=== PATIENT | male | born 1940 | race Caucasian/White ===

== ENCOUNTER 2016-07-28 05:30 | Inpatient (IN) | payer OTHER ==
[~2016-07-28] VITALS: Ht 185.4 cm; Wt 111.1 kg
[~2016-07-28 05:30] MED LIST: ASPI-1063 PO; ATEN-166 PO; CLOP75TA2 PO; HYDR12.585 PO; IBUP-1480 PO; LISI-600 PO; PRAV40TA PO
[2016-07-28] MEDS ORDERED: CEFAZOLIN 1 GM IVPB PREMIX 50 ML IV ONE (07:00)
[2016-07-28] MEDS ORDERED: POLYMYXIN 500,000/BACIT.10,000 UNITS in NS IRR 1 L IR ONE (07:06)
[2016-07-28] MEDS ORDERED: LR 1,000 ML IV SCH (08:20)
[2016-07-28] MEDS ORDERED: NALBUPHINE HCL 10 MG/ML AMP IVP PRN (08:30)
[2016-07-28] MEDS ORDERED: ePHEDrine sulfate 50 MG/ML VIAL IVP PRN (08:30)
[2016-07-28] MEDS ORDERED: fentaNYL CITRATE/PF 100 MCG/2 ML AMP IVP PRN (08:30)
[2016-07-28] MEDS ORDERED: DIPHENHYDRAMINE INJ 50 MG/ML VIAL IVP PRN (08:30)
[2016-07-28] MEDS ORDERED: ONDANSETRON HCL 4 MG/2 ML VIAL IVP PRN ×2 (08:30)
[2016-07-28] MEDS ORDERED: NALOXONE HCL 0.4 MG/ML AMP (NARCAN) IVP PRN (08:30)
[2016-07-28] MEDS ORDERED: KETOROLAC TROMETHAMINE 30 MG VIAL IM PRN (08:30)
[2016-07-28] MEDS ORDERED: D5/0.45 NS 1,000 ML IV ONE (09:12)
[2016-07-28] MEDS ORDERED: BISACODYL 10 MG/SUPPOSITORY RC PRN (09:15)
[2016-07-28 10:24] VITALS: BP 126/64; PULSE 56; RESP 19; O2SAT 96
[2016-07-28] MEDS ORDERED: VANCOMYCIN HCL 1000 MG/VIAL IV ONE (14:00)
[2016-07-28] MEDS ORDERED: MIDAZOLAM HCL 5 MG/5 ML VIAL ONE (14:00)
[2016-07-28] MEDS ORDERED: MORPHINE SULFATE 10MG/10ML PF AMP ONE (14:00)
[2016-07-28] MEDS ORDERED: PROPOFOL 200MG/ 20ML VIAL (DIPRIVAN) IV ONE (14:00)
[2016-07-28] MEDS ORDERED: METOCLOPRAMIDE HCL 10 MG/2 ML VIAL ONE (14:00)
[2016-07-28] MEDS ORDERED: SEVOFLURANE 15 MIN GAS INH ONE (14:00)
[2016-07-28] MEDS ORDERED: fentaNYL CITRATE/PF 100 MCG/2 ML AMP ONE (14:00)
[2016-07-28] MEDS ORDERED: ceFAZolin SODIUM 1 GM VIAL ONE (14:00)
[2016-07-28] MEDS ORDERED: NORMAL SALINE 10 ML VIAL ONE (14:00)
[2016-07-28] MEDS ORDERED: NS 100 ML BAG IV ONE (14:00)
[2016-07-28] MEDS ORDERED: LR 1,000 ML IV.SOLN IV ONE (14:00)
[2016-07-28] MEDS: CEFAZOLIN 1 GM IVPB PREMIX 50 ML IV SCH ×2 (16:57→21:14)
[2016-07-28] MEDS: ACETAMINOPHEN 325 MG TABLET PO PRN (17:06)
[2016-07-28 20:10] VITALS: BP 109/52; PULSE 89; RESP 18; TEMP 97.2; O2SAT 94
[2016-07-28] MEDS: ATENOLOL 25 MG TABLET(TENORMIN) PO SCH (21:00)
[2016-07-28] MEDS: SIMVASTATIN 40 MG TABLET PO SCH (21:11)
[2016-07-28] MEDS: HYDROcodone/ACETAMIN 7.5-325 MG TAB PO PRN (21:16)
[2016-07-28] MEDS: MORPHINE SULFATE 10 MG/ML VIAL IM PRN (22:34)
[2016-07-28] MEDS ORDERED: HYDROmorphone 1 MG INJ. 1 MG/ML AMPUL IVP ONE (23:30)
[2016-07-29] VITALS (8 sets, daily range): BP systolic 106–147; BP diastolic 53–71; PULSE 76–92; RESP 16–19; TEMP 98.2–101.1; O2SAT 91–98
[2016-07-29 06:46] LABS: BASOPHILS % (AUTO) 0.6 % (0.0-2.0); EOSINOPHILS # (AUTO) 0.1 K/uL (0.0-0.4); EOSINOPHILS % (AUTO) 0.8 % (0.0-4.0); HEMATOCRIT 35.9 % (36-54); HEMOGLOBIN 12.2 g/dL (14.0-18.0); LYMPHOCYTES # (AUTO) 1.4 K/uL (1.0-5.5); LYMPHOCYTES % (AUTO) 19.1 % (20.5-51.5); MEAN CORPUSCULAR HEMOGLOBIN 33 pg (27-31); MEAN CORPUSCULAR HGB CONC 34 % (32-36); MEAN CORPUSCULAR VOLUME 98 fL (79.0-98.0); MONOCYTES # (AUTO) 1.3 K/uL (0.0-1.0); NEUTROPHILS # (AUTO) 4.6 K/uL (1.8-7.7); NEUTROPHILS % (AUTO) 61.5 % (40.0-70.0); PLATELET COUNT (AUTO) 115 K/uL (130-430); RED BLOOD CELL COUNT(AUTO) 3.68 MIL/uL (4.2-6.2); RED CELL DISTRIBUTION WIDTH 12.3 % (9.0-15.0); WHITE BLOOD COUNT (AUTO) 7.4 K/uL (4.8-10.8)
[2016-07-29 07:07] LABS: INR 1.1 (0.80-1.20); PROTHROMBIN TIME 11.5 SECS (9.5-12.5)
[2016-07-29] MEDS: HYDROCHLOROTHIAZIDE 12.5 MG CAPSULE (HCTZ) PO SCH (08:41)
[2016-07-29] MEDS: LISINOPRIL 20 MG TABLET PO SCH (08:41)
[2016-07-29] MEDS: RIVAROXABAN 10 MG TABLET PO SCH (08:41)
[2016-07-29] MEDS: ATENOLOL 25 MG TABLET(TENORMIN) PO SCH ×2 (08:41→20:48)
[2016-07-29] MEDS: MORPHINE SULFATE 10 MG/ML VIAL IM PRN ×3 (08:42→22:34)
[2016-07-29] MEDS ORDERED: PRAVASTATIN SODIUM 20 MG TABLET (PRAVACHOL) PO SCH (09:00)
[2016-07-29] MEDS: HYDROcodone/ACETAMIN 7.5-325 MG TAB PO PRN ×2 (11:34→20:48)
[2016-07-29 11:41] LABS: ANION GAP 10 (5-15); CALCIUM 8.6 mg/dL (8.4-11.0); CHLORIDE 96 mmol/L (98-107); CREATININE 1.18 mg/dL (0.55-1.30); GLUCOSE 148 mg/dL (70-99); POTASSIUM 3.6 mmol/L (3.5-5.1); SODIUM SERUM 136 mmol/L (136-145); UREA NITROGEN, BLOOD 13 mg/dL (8-21)
[2016-07-29 11:45] LABS: ALANINE AMINOTRANSFERASE 34 U/L (12-78); ALBUMIN 3.7 g/dL (3.4-4.8); ASPARTATE AMINOTRANSFERASE 52 U/L (10-37); TOTAL BILIRUBIN 1.6 mg/dL (0.0-1.0); TOTAL PROTEIN, SERUM 7.2 g/dL (6.4-8.3)
[2016-07-29] MEDS ORDERED: MORPHINE SULFATE 10 MG/ML VIAL IM PRN (12:00)
[2016-07-29] MEDS: ACETAMINOPHEN 325 MG TABLET PO PRN (15:25)
[2016-07-29] MEDS: SIMVASTATIN 40 MG TABLET PO SCH (20:48)
[2016-07-29] MEDS: PROMETHAZINE HCL 25 MG/ML AMP IM PRN ×2 (22:32→22:33)
[2016-07-30] VITALS (9 sets, daily range): BP systolic 98–122; BP diastolic 50–57; PULSE 72–88; RESP 18–20; TEMP 97.6–101.8; O2SAT 93–100
[2016-07-30] MEDS: MORPHINE SULFATE 10 MG/ML VIAL IM PRN (06:01)
[2016-07-30] MEDS: PROMETHAZINE HCL 25 MG/ML AMP IM PRN (06:02)
[2016-07-30] MEDS ORDERED: ALBUTEROL SULFATE 0.083% 2.5 MG/3 ML VIAL.NEB INH PRN (08:00)
[2016-07-30] MEDS ORDERED: IPRATROPIUM BROM 0.5 MG/2.5 ML VIAL.NEB (ATROVENT) INH PRN (08:00)
[2016-07-30 08:45] LABS: HEMATOCRIT 35.1 % (36-54); HEMOGLOBIN 12.1 g/dL (14.0-18.0); MEAN CORPUSCULAR HEMOGLOBIN 34 pg (27-31); MEAN CORPUSCULAR HGB CONC 35 % (32-36); MEAN CORPUSCULAR VOLUME 98 fL (79.0-98.0); PLATELET COUNT (AUTO) 106 K/uL (130-430); RED BLOOD CELL COUNT(AUTO) 3.57 MIL/uL (4.2-6.2); RED CELL DISTRIBUTION WIDTH 12.2 % (9.0-15.0); WHITE BLOOD COUNT (AUTO) 8.7 K/uL (4.8-10.8)
[2016-07-30 09:02] LABS: BAND % (MANUAL) 7 % (0-6); BASOPHILS % (MANUAL) 0 % (0-2); EOSINOPHILS % (MANUAL) 0 % (0-7); LYMPHOCYTES % (MANUAL) 15 % (20-46); MONOCYTES % (MANUAL) 16 % (0-11)
[2016-07-30] MEDS: PIPERACILLIN/TAZO 3.375/DEX-IS 50 ML IV SCH ×4 (09:08→23:33)
[2016-07-30] MEDS: ATENOLOL 25 MG TABLET(TENORMIN) PO SCH ×2 (09:09→21:00)
[2016-07-30] MEDS: LISINOPRIL 20 MG TABLET PO SCH (09:09)
[2016-07-30] MEDS: HYDROCHLOROTHIAZIDE 12.5 MG CAPSULE (HCTZ) PO SCH (09:09)
[2016-07-30] MEDS: RIVAROXABAN 10 MG TABLET PO SCH (09:09)
[2016-07-30] MEDS: VANCOMYCIN HCL 1,500 MG in NS 250 ML IV SCH ×2 (10:14→21:57)
[2016-07-30] MEDS: IPRATROPIUM BROM 0.5 MG/2.5 ML VIAL.NEB (ATROVENT) INH SCH ×3 (11:32→23:30)
[2016-07-30] MEDS: ALBUTEROL SULFATE 0.083% 2.5 MG/3 ML VIAL.NEB INH SCH ×3 (11:32→23:30)
[2016-07-30] MEDS: ACETAMINOPHEN 325 MG TABLET PO PRN (15:23)
[2016-07-30] MEDS: SIMVASTATIN 40 MG TABLET PO SCH (21:57)
[2016-07-30] MEDS: HYDROcodone/ACETAMIN 7.5-325 MG TAB PO PRN (21:57)
[2016-07-31] VITALS (10 sets, daily range): BP systolic 100–144; BP diastolic 45–81; PULSE 77–94; RESP 17–19; TEMP 97.1–102.2; O2SAT 93–95
[2016-07-31] MEDS: ACETAMINOPHEN 325 MG TABLET PO PRN ×3 (00:06→19:09)
[2016-07-31] MEDS: IPRATROPIUM BROM 0.5 MG/2.5 ML VIAL.NEB (ATROVENT) INH SCH ×6 (03:30→23:00)
[2016-07-31] MEDS: ALBUTEROL SULFATE 0.083% 2.5 MG/3 ML VIAL.NEB INH SCH ×6 (03:30→23:00)
[2016-07-31] MEDS: PIPERACILLIN/TAZO 3.375/DEX-IS 50 ML IV SCH (05:16)
[2016-07-31] MEDS: VANCOMYCIN HCL 1,500 MG in NS 250 ML IV SCH ×2 (09:51→20:28)
[2016-07-31] MEDS: RIVAROXABAN 10 MG TABLET PO SCH (09:51)
[2016-07-31] MEDS: HYDROCHLOROTHIAZIDE 12.5 MG CAPSULE (HCTZ) PO SCH (09:51)
[2016-07-31] MEDS: ATENOLOL 25 MG TABLET(TENORMIN) PO SCH ×2 (09:52→20:29)
[2016-07-31] MEDS: LISINOPRIL 20 MG TABLET PO SCH (09:52)
[2016-07-31] MEDS: CEFEPIME 1 GM in D5W 50 ML IV SCH ×2 (12:24→20:28)
[2016-07-31] MEDS: SIMVASTATIN 40 MG TABLET PO SCH (20:28)
[2016-08-01] MEDS: HYDROcodone/ACETAMIN 7.5-325 MG TAB PO PRN ×2 (00:05→04:02)
[2016-08-01 00:31] VITALS: BP 140/64; PULSE 85; RESP 18; TEMP 98.7; O2SAT 94
[2016-08-01 04:00] VITALS: BP 136/68; PULSE 81; RESP 17; TEMP 98.2; O2SAT 96
[2016-08-01 08:07] VITALS: BP 136/61; PULSE 76; RESP 17; TEMP 98.5; O2SAT 95
[2016-08-01] MEDS: ATENOLOL 25 MG TABLET(TENORMIN) PO SCH (08:40)
[2016-08-01] MEDS: RIVAROXABAN 10 MG TABLET PO SCH (08:40)
[2016-08-01] MEDS: HYDROCHLOROTHIAZIDE 12.5 MG CAPSULE (HCTZ) PO SCH (08:41)
[2016-08-01] MEDS: LISINOPRIL 20 MG TABLET PO SCH (08:41)
[2016-08-01] MEDS: CEFEPIME 1 GM in D5W 50 ML IV SCH (08:41)
[2016-08-01] MEDS: VANCOMYCIN HCL 1,500 MG in NS 250 ML IV SCH (09:41)
[2016-08-01] MEDS: ALBUTEROL SULFATE 0.083% 2.5 MG/3 ML VIAL.NEB INH SCH (09:43)
[2016-08-01] MEDS: IPRATROPIUM BROM 0.5 MG/2.5 ML VIAL.NEB (ATROVENT) INH SCH (09:44)
[2016-08-01] MEDS ORDERED: LEVO500T20 PO (09:53)
[2016-08-01] MEDS ORDERED: RIVA10TA PO (09:54)
[2016-08-01] MEDS ORDERED: HYDR-1189 PO (09:54)
[2016-08-01 10:38] VITALS: BP 115/63; PULSE 86; RESP 17; TEMP 97.2; O2SAT 95
== END 2016-08-01 11:40 | disposition home or self-care (01) | DRG 470 ==
LOC: SMU 05:30
PROVIDERS: ADMIT Orthopaedic Surgery; ATTEND Orthopaedic Surgery
PROC: 0SRD0J9 Replacement of Left Knee Joint with Synthetic Substitute, Cemented, Open Approach (ICD-10-PCS; principal; 2016-07-28 07:30)
DX: M17.12 Unilateral primary osteoarthritis, left knee (principal); J98.11 Atelectasis; F17.200 Nicotine dependence, unspecified, uncomplicated; E78.00 Pure hypercholesterolemia, unspecified; G89.29 Other chronic pain; I10 Essential (primary) hypertension; I25.10 Atherosclerotic heart disease of native coronary artery without angina pectoris; Z79.01 Long term (current) use of anticoagulants; Z91.19 Patient's noncompliance with other medical treatment and regimen; Z98.61 Coronary angioplasty status
CPT/HCPCS: 36415; 71010; 80053; 85007; 85025; 85027; 85610-TC; 85651-TC; 87040-TC; 87081; 88305; 88311; 94010; 94640; 94760; 97110-GP; 97116-GP; 97530-GP; C1713; C1776; J0690; J0692; J1170; J2250; J2270; J2274; J2405; J2543; J2550; J2704; J2765; J3010; J3370; J3410; J7030; J7040; J7050; J7060; J7120